=== PATIENT | female | born 1955 | race Hispanic/Latino ===

== ENCOUNTER → 2020-05-12 | Day surgery (SDC) | payer OTHER ==
[~2020-05-12] MED LIST: FENTANYL CITRATE/PF 100MCG/2 ML INJ ONE; HYOSCYAMINE 0.125 MG TAB ONE; IRON PO; LIDOCAINE HCL 2% LOCAL INJ 5 ML SDV VIAL INJ ONE; MIDAZOLAM HCL 2 MG/2 ML VIAL ONE; PANTOPRAZOLE 40 MG 10ML VIAL ONE; PROPOFOL IV EMULSION 10 MG/ML 20 ML VIAL ONE; VENOFER100 MG/5 M IV
[2020-05-12 15:05] VITALS: BP 139/76
[2020-05-12 15:10] LABS: WBC,FECAL (FECAL LACTOFERRIN) NEGATIVE (NEGATIVE)
[2020-05-13 13:35] LABS: C DIFFICILE TOXIN A&B AMP PROB NEGATIVE (NEGATIVE)
== END | disposition home or self-care (01) ==
LOC: OR 13:21
PROVIDERS: ATTEND Internal Medicine Gastroenterology
DX: D64.9 Anemia, unspecified (principal); K63.5 Polyp of colon; K31.7 Polyp of stomach and duodenum; K29.50 Unspecified chronic gastritis without bleeding; K63.3 Ulcer of intestine; K20.90 Esophagitis, unspecified without bleeding; K31.89 Other diseases of stomach and duodenum; K44.9 Diaphragmatic hernia without obstruction or gangrene; K22.8 Other specified diseases of esophagus; R19.7 Diarrhea, unspecified; K64.9 Unspecified hemorrhoids
CPT/HCPCS: 43239; 45380; 45385; 83630; 83993; 87045; 87177; 87328; 87493; 93005; C9113; J2001; J2250; J2704; J3010; U0002; 45378